=== PATIENT | female | born 1985 | race Caucasian/White ===

== ENCOUNTER → 2018-08-02 17:26 | Observation (INO) ==
--- NOTE | 2018-08-02 17:34 | OB/GYN Progress Note ---
Date of Encounter: 08/02/18 Time of Encounter: 17:10 - Assessment and Plan (1) 31 weeks gestation of Status: Acute Reactive NST Discussed POC for Cholestasis with delivery by 37 weeks Started Ursodial 300mg po BID, first dose given prior to discharge and Rx given NSTs 2x weekly Discussed kick counts Weekly bile acids to monitor trends Follow up on for bile acid, NST, and PN with Dr Loyola POC per consult with Dr Goodman (2) Cholestasis during in third trimester Status: Acute (3) NST (non-stress test) reactive Status: Acute Subjective - Subjective Principal diagnosis: Cholestasis of Interval history: Ms Desir is a at 31 weeks 5 days that presents to triage to discuss her bile acids results and plan of care as she could not come to the office today. She states positive movement. She denies headaches, vision changes, epigastric pain, leaking of fluid, vaginal discharge, and cramping/contractions. She states her itching has increased severely and the topicals and vistaril are barely helping. She is seen by Dr Loyola for her care. Antepartum ROS: movement normal, other (Profuse itching) Objective - Exam FHR: category 1 FHR comments: Baseline 135 with 15 x 15 accels and no decels. No contractions per monitor and palpation Auscultation: bilateral: normal Abdomen: Present: normal appearance, soft, gravid. Absent: tenderness Uterus: Present: normal. Absent: firm
== END | disposition home or self-care (01) ==
LOC: 1NENULAB
PROVIDERS: ADMIT Advanced Practice Midwife; ATTEND Advanced Practice Midwife

== ENCOUNTER 2018-08-30 09:23 | Inpatient (IN) ==
[2018-08-30] MEDS ORDERED: Metoclopramide 10 MG/2 ML VIAL IVP PRN ×2 (09:51→14:52)
[2018-08-30] MEDS ORDERED: Famotidine 20 MG/2 ML VIAL IVP PRN (09:51)
[2018-08-30] MEDS ORDERED: Ringers Solution, Lactated 1,000 ML ONE ×4 (10:01→11:47)
[2018-08-30 10:20] LABS: Basophils % 0.2 %; Eosinophils % 0.2 %; Hematocrit 35.5 % (35.3-44.9); Hemoglobin 12.1 g/dL (11.5-15.4); Immature Granulocytes % 1.8 % (0-4); Lymphocytes # 2.5 K/mcL (0.6-4.6); Lymphocytes % 15.4 %; Mean Corpuscular HGB Conc 34.1 g/dL (31.6-35.5); Mean Corpuscular Hemoglobin 32.5 pg (28.0-33.3); Mean Corpuscular Volume 95.4 fL (83.0-100.0); Mean Platelet Volume 11.1 fL (9.4-12.4); Monocytes # 1.1 K/mcL (0.0-1.3); Monocytes % 6.8 %; Neutrophils # 12.4 K/mcL (1.6-8.9); Nucleated Red Blood Cells 0.4 /100 WBC (0); Platelet Count 304 K/mcL (140-400); Red Blood Count 3.72 M/mcL (3.82-4.97); Red Cell Distribution Width 13.7 % (11.5-14.5); Segmented Neutrophils % 75.6 %; White Blood Count 16.4 K/mcL (4.3-11.1)
[2018-08-30] MEDS ORDERED: CeFAZolin Premix DUPLEX 2,000 MG/50 ML BAG IVPB ONE (10:33)
--- NOTE | 2018-08-30 10:44 | Anesthesia Evaluation PreOp ---
Date of Encounter: 08/30/18 Time of Encounter: 10:35 - Past History Planned Operation: repeat x1 (classical) Cardiac History: Denies any Significant Hx Pulmonary History: Smoker Other Medical History: Hepatic (HEP C+,), Other (previous IVDA, clean for 6yrs.) Anesthesia History: No Prior Anesthetic Complications, Past Anesthesia Alcohol Use: occasionally Drug use: marijuana Medications and Allergies 19 Tablet 1 tab PO DAILY 08/02/18 [History] Prilosec PO DAILY 08/02/18 [History] Ursodiol [Actigall] 300 mg PO BID #60 capsule 08/02/18 [Rx] Vistaril 50 mg PO DAILY 08/02/18 [History] Allergy/AdvReac Type Severity Reaction Status Date / Time clindamycin Allergy Redness of Verified 08/02/18 17:03 Skin Metaxalone [From Skelaxin] Allergy Hives Verified 08/30/18 09:40 tramadol [From Ultram] Allergy unsure Verified 08/02/18 17:04 Anesthesia Results - Labs 08/30/18 10:00 Anesthesia Exam - HEENT Pupil (Motor): Pupils equal Mallampati: II Teeth: Normal Oral Opening: Greater than 3 - AUTOMATIC SCREWMAKER LOC: Oriented AUTOMATIC SCREWMAKER Motor: Normal RUE, Normal LUE, Normal RLE, Normal LLE, Normal Face AUTOMATIC SCREWMAKER Sensory: Normal: RUE, LUE, RLE, LLE, Face - Cardiac Rhythm: Regular Murmur: None - Pulmonary Breath Sounds: bilateral Clear Respiratory Effort: Symmetrical Anesthesia Assess/Plan ASA Score: 3 Level of consciousness: Cooperative, Oriented Anesthetic Plan: General, Spinal, Epidural Monitoring Plan: Standard Monitors Recovery Plan: PACU
--- NOTE | 2018-08-30 10:46 | OB/GYN History & Physical ---
Date of Encounter: 08/30/18 Time of Encounter: 10:34 Assessment and Plan (1) 35 to 36 weeks gestation of Current visit: Yes Status: Acute (2) History of classical section Current visit: Yes Status: Acute (3) labor in third trimester Current visit: Yes Status: Acute Plan for repeat . Pt consented. Anes notified. She has been admitted and is NPO w/ IVF. T&S w/ CBC pending. CEFM/toco. Preop abx ordered. Preeclampsia labs ordered due to intermittent mild range BPs. Qualifiers: labor delivery status: without delivery Qualified Code(s): O60.03 - labor without delivery, third trimester (4) Cholestasis during in third trimester Current visit: No Status: Acute History of Present Illness Chief complaint: ctxs and vb HPI: Ms. Desir is a 32 year old female at 35 5/7 wks EDC determined by 2nd tri US at 15 5/7 wks who presents in labor w/ a history of a classical section for a partial molar at 24 weeks. Her daughter survive d and is 10yo w/ MRDD and CP. She has a vertical abdominal skin incision but would prefer a Phannenstiel this time. She reports reg painful ctxs since 7AM. She was last checked in the office 08/26 and she was FT now she is 3cm and very uncomfortable. She has had vb w/ the contractions (like a period) no LOF. She is having a boy. She was planning for a TL but has changed her mind. She is also taking Ursodiol and Vistaril for generalized pruritis 2/2 cholestasis of . She has elevated bile acids. She has hx of Hep C and has never been treated. 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 Her last PO was at 6:50AM. She is Rh neg. Past Med Surg Social Fam HX - Past Medical History Medical history: no medical history Psychiatric history: no psych history - Past Surgical History Additional surgical history: , laparoscopic gall bladder, MRSA in c- section (7 partial re-opens_ - Social History Smoking Status: Current every day smoker Smokeless Tobacco Status: No Alcohol use: occasionally Drug use: marijuana - Family History Mother Adopted: No Family Member Ethnicity: Non- Living Status: Hx Family Cardiac Disorders: Yes (hypertension, hyperlipidemia) Hx Family Respiratory Disorders: Yes (COPD, asthma) Hx Family Cancer: Yes (COLON cancer) Hx Family GI Disorders: Yes (IBS w/constipation) Hx Family Endocrine Disorder: No Hx Family Neuromuscular Disorders: No Hx Family Neurologic Disorders: No Hx Family HEENT Disorders: No Hx Family Autoimmune Disorders: No Obstetrical History - Pregnancies : 3 Para: 2 Term: 0 : 2 Ab's: 0 Livin - History/Complications History/Complications: G1 PTD/ at 35 wks G2 Classical section at 24 wks for partial molar resulting in heavy bleeding and blood transfusion, post op w/ MRSA wound infection Medications and Allergies 19 Tablet 1 tab PO DAILY 08/02/18 [History] Prilosec PO DAILY 08/02/18 [History] Ursodiol [Actigall] 300 mg PO BID #60 capsule 08/02/18 [Rx] Vistaril 50 mg PO DAILY 08/02/18 [History] Allergy/AdvReac Type Severity Reaction Status Date / Time clindamycin Allergy Redness of Verified 08/02/18 17:03 Skin Metaxalone [From Skelaxin] Allergy Hives Verified 08/30/18 09:40 tramadol [From Ultram] Allergy unsure Verified 08/02/18 17:04 Review of System OB ROS unobtainable: other (denies KIDD, SOB, RUQ pain, or blurry vision) Exam - Constitutional Constitutional: well developed, well nourished - Lungs Respiratory exam: CTAB - Cardiovascular Cardiovascular exam: RRR - Abdomen Abdomen: Present: gravid, non tender. Absent: guarding noted - Extremities Extremities exam: normal inspection Deep Tendon Reflex Grade: 2+ Normal (low vertical midline incision, no calf tenderness, bloody show noted) - Comments Comments: FHTs 130/mod variability/+A,-D, toco: q2-5 min Results Result Diagrams: 08/30/18 10:00 Abnormal lab results WBC 16.4 K/mcL (4.3-11.1) H 08/30/18 10:00 RBC 3.72 M/mcL (3.82-4.97) L 08/30/18 10:00 12.4 K/mcL (1.6-8.9) H 08/30/18 10:00 Nucleated RBCs/100 WBC 0.4 /100 WBC (0) H 08/30/18 10:00 All other labs normal. - VTE Reasons for not Prescribing Prophylaxis: Treatment not Indicated - Low risk for VTE
[2018-08-30] MEDS ORDERED: *HR* Morphine Sulfate/PF 10 MG/10 ML AMPUL ONE (10:53)
[2018-08-30] MEDS ORDERED: *HR* FentaNYL (PF) 100 MCG/2 ML VIAL ONE (10:53)
[2018-08-30] MEDS ORDERED: EPHEDrine 50 MG/ML VIAL ONE ×2 (10:53→10:57)
[2018-08-30] MEDS ORDERED: Dexamethasone 4 MG/ML VIAL ONE (10:54)
[2018-08-30] MEDS ORDERED: *HR* Oxytocin 10 UNIT/ML VIAL IM ONE (10:54)
[2018-08-30] MEDS ORDERED: *HR* Midazolam HCl 2 MG/2 ML VIAL ONE (11:24)
[2018-08-30 11:31] LABS: Aspartate Amino Transferase 25 Units/L (13-39); BUN/Creatinine Ratio 23 (6-26); Blood Urea Nitrogen 14 mg/dL (6-20); eGFR For African Americans > 60 (> 60); eGFR For Non-African Americans > 60 (> 60)
[2018-08-30] MEDS ORDERED: Ketorolac 30 MG/ML VIAL ONE (11:51)
[2018-08-30 12:10] LABS: Amphetamine Screen,Urine Negative ng/mL (Cutoff=1000); Barbiturate Screen,Urine Negative ng/mL (Cutoff=200); Benzodiazepines Screen,Urine Negative ng/mL (Cutoff=200); Cannabinoid Screen,Urine Positive ng/mL (Cutoff = 50); Cocaine Screen,Urine Negative ng/mL (Cutoff= 300); Creatinine,Urine < 1 mg/dL; Opiate Screen,Urine Negative ng/mL (Cutoff=300); Phencyclidine Screen,Urine Negative ng/mL (Cutoff=25)
[2018-08-30] MEDS ORDERED: *HR* Phenylephrine 10 MG/ML VIAL ONE (12:23)
[2018-08-30] MEDS ORDERED: *HR* Labetalol 20 MG/4 ML SYRINGE IVP ONE (13:00)
[2018-08-30] MEDS ORDERED: Oxytocin 20 units/ LR 1000 mL 20 UNIT/1,000 ML BAG IVC ONE (14:09)
--- NOTE | 2018-08-30 14:27 | Anesthesia Evaluation Post Op ---
Date of Encounter: 08/30/18 Time of Encounter: 13:56 - Vital Signs Vital Signs: vss - Lungs Lungs: Clear Ascult./Percussion - Airway Airway: Non-obstructed - Mental Status Mental Status: Alert & Oriented, Answers Appropriately - Pain Pain Scale used: Gerri (Faces) - Nausea Vomiting Nausea Vomiting: Not Present - Hydration Hydration: Ice chips - Discharge PostOp Status: Transfer Patient to floor
[2018-08-30] MEDS ORDERED: Sennosides 8.6 MG TABLET PO PRN (14:52)
[2018-08-30] MEDS ORDERED: Simethicone 80 MG TAB.CHEW PO PRN (14:52)
[2018-08-30] MEDS ORDERED: Rho Immune Globulin 1,500 UNIT SYRINGE IM ONE (14:52)
[2018-08-30] MEDS ORDERED: Oxytocin 20 units/ LR 1000 mL 20 UNIT/1,000 ML BAG IVC SCH ×2 (14:52)
[2018-08-30] MEDS ORDERED: Ondansetron 4 MG/2 ML VIAL IVP PRN (14:52)
--- NOTE | 2018-08-30 15:15 | OB/GYN Procedure Note ---
Section - Date of procedure: 08/30/18 Preop diagnosis: other (history of classical section, in labor at 35 weeks) Post-op diagnosis: same Procedure: repeat low transverse Surgeon: Venessa Zhang Blood Loss: 500 Was there an hospital aides and assistants teacher present: Yes Dress Marker: Garth Caraballo (to nava case) Fruit Pitter: Jimmie Pereira Anesthesia Type: Spinal section complications: none Disposition: PACU Specimens: Placenta (on hold) - (s) Infant A Delivery Date: 08/30/18 Delivery Time: 11:43 Presentation: vertex Gender: Male Viability: Viable Pounds: 6 Ounces: 2 Gram Weight: 2.77 kg at 1 minute: 8 at 5 minutes: 9 Shoulder Dystocia: not encountered Specimens collected: cord blood Placenta: spontaneous (with fundal massage and gentle traction on the cord) - Narrative Narrative: The patient was taken to the operating room where she was prepped for surgery by anesthesia who performed a spinal block. She had a Reyes catheter placed. The vagina was prepped with betadine. The patient was grounded. She had sequential compression stockings applied and activated. The patient was prepped and draped in the normal sterile fashion after confirming normal heart tones. She received preoperative Ancef 2g. A timeout was completed. Testing demonstrated adequate anesthesia. A Pfannenstiel skin incision was made using the previous incision scar. The incision was carried down to the fascia. A fascial incision was created. The incision was extended laterally with the Reddy scissors. The superior aspect of the incision was grasped with Adryan clamps and elevated. The underlying rectus muscles were dissected off bluntly. Scar tissue was encountered in the midline and this was taken down with the scissors. The inferior aspect of the incision was grasped and the rectus muscles were dissected off bluntly. The rectus muscles were divided in the midline. The peritoneum was entered bluntly. The peritoneal incision was extended superiorly and inferiorly bluntly. A bladder blade was placed. A bladder flap was created. The uterine incision was made in the lower uterine segment in a transverse fashion. The uterus was entered bluntly. The uterine incision was extended laterally bluntly. The head of the infant was lifted out of the pelvis and delivered through the incision with gentle fundal pressure. The body of the infant was delivered with gentle pressure applied to the fundus and gentle traction on the head and under the arms. The mouth and nose were bulb suctioned. The umbilical cord was clamped and cut. After that, the was handed off to the nurse. The placenta was delivered with gentle traction on the cord and fundal massage. It appeared to be intact. The uterus was cleared of membrane with a dry lap sponge. The uterus was exteriorized. The uterine incision was closed with 0 Polysorb suture in a running locked fashion. A second layer, using the same type of suture, was used for imbrication. The uterine incision was found to be hemostatic. The fallopian tubes and the ovaries were inspected. The gutters were cleared of all clot and debris. The uterus was returned to the abdomen. The fascia was closed in a running fashion using 0 Vycril suture. The skin was closed in a subcuticular manner using 4-0 Monocryl. Steri-Strips were placed along the incision. The incision was dressed with a pressure dressing. Sponge, needle, and instrument counts were correct times two.
[2018-08-30] MEDS: Ibuprofen 600 MG TABLET PO PRN ×2 (16:06→22:50)
[2018-08-30] MEDS ORDERED: 0.9 % Sodium Chloride 500 ML IVC ONE (18:30)
[2018-08-30] MEDS: hydrOXYzine pamoate 25 MG CAPSULE PO PRN (22:51)
[2018-08-31] MEDS: Ibuprofen 600 MG TABLET PO PRN ×3 (05:46→18:36)
[2018-08-31 08:19] LABS: Basophils % 0.2 %; Eosinophils % 0.2 %; Hematocrit 31.8 % (35.3-44.9); Hemoglobin 10.7 g/dL (11.5-15.4); Immature Granulocytes % 0.7 % (0-4); Lymphocytes # 3.8 K/mcL (0.6-4.6); Lymphocytes % 21.8 %; Mean Corpuscular HGB Conc 33.6 g/dL (31.6-35.5); Mean Corpuscular Volume 98.1 fL (83.0-100.0); Mean Platelet Volume 11.3 fL (9.4-12.4); Monocytes # 1.2 K/mcL (0.0-1.3); Monocytes % 6.9 %; Neutrophils # 12.3 K/mcL (1.6-8.9); Nucleated Red Blood Cells 0.1 /100 WBC (0); Platelet Count 294 K/mcL (140-400); Red Blood Count 3.24 M/mcL (3.82-4.97); Segmented Neutrophils % 70.2 %; White Blood Count 17.5 K/mcL (4.3-11.1)
[2018-08-31] MEDS: Prenatal Vit/FA 1 EACH TABLET PO SCH (09:01)
[2018-08-31] MEDS: *HR* OxyCODONE/APAP 5/325 TABLET PO PRN ×3 (10:16→23:05)
--- NOTE | 2018-08-31 10:48 | OB/GYN Progress Note ---
Date of Encounter: 08/31/18 Time of Encounter: 10:46 - Assessment and Plan (1) delivery delivered Current Visit: Yes Status: Acute Maintain dressing with abdominal binder for support. Advance diet as tolerated. Ambulate as tolerated. Supportive bra for bottle feeding. Continue to encourage ambulation and await flatus. Anticipate discharge home POD2-3. (2) Intrahepatic cholestasis of , delivered, current hospitalization Current Visit: Yes Status: Acute Monitor pruritis. Medication as needed for comfort. Start Ursodiol 300 mg po BID Subjective - Subjective Interval history: 32 y/o female postop day 1 reports itching all over her body that starts with her hands. She is tearful and reports that the itching is making her miserable and interfering with her ability to sleep and sanderson with her baby. Also c/o burning along incision area when she coughs especially on the left side but also present on right side. She denies any other complaints. She is tolerating a regular diet without nausea and is not yet passing flatus. Patient reports: appetite normal, voiding normally, pain well controlled, ambulating normally : in NICU (35 week, took first bottle today), bottle feeding Objective - Vital Signs Latest vital signs: Vital Signs Temp Pulse Resp BP Pulse Ox 08/31/18 07:53 97.8 F 57 16 123/83 08/31/18 05:40 97.3 F L 70 16 127/84 98 08/30/18 23:30 98.1 F 69 16 119/72 97 08/30/18 19:40 97.9 F 80 16 124/74 98 08/30/18 17:46 97.8 F 64 16 118/66 96 08/30/18 16:55 97.7 F 79 14 122/75 97 08/30/18 15:45 97.4 F L 61 14 111/56 97 08/30/18 15:15 97.4 F L 65 14 119/64 98 08/30/18 14:45 97.4 F L 68 14 107/60 97 Intake and Output 08/30/18 08/31/18 08/31/18 23:59 07:59 15:59 Intake Total 600 / 960 360 / 960 Output Total 380 / 680 1200 / 2200 1000 / 2200 Balance -380 / -480 -600 / -1240 -640 / -1240 Intake: Oral 600 / 960 360 / 960 Output: Urine 1000 / 1000 Catheter 380 / 680 1200 / 1200 Other: Meal Breakfast Percent of Meal Consumed 100% Weight 62.9 kg Patient Weight 08/31/18 23:59 Weight 62.9 kg - Exam Lungs: bilateral: normal Chest: Normal S1, Normal S2 Extremities: Present: edema (1+ non pitting) Abdomen: Present: normal appearance, soft Incision: Present: dry, dressed (dried blood on dressing) Uterus: Present: firm Fundal Height: 1 (U/-1) - Labs Labs: Laboratory Results - last 24 hr 08/30/18 08/30/18 08/30/18 10:00 10:57 12:48 WBC RBC Hgb Hct MCV MCH MCHC RDW Plt Count MPV Immature Gran % Seg Neutrophils % Lymphocytes % Monocytes % Eosinophils % Basophils % Neutrophils # Lymphocytes # Monocytes # Eosinophils # Basophils # Nucleated RBCs/100 WBC BUN 14 Creatinine 0.60 Est GFR ( Amer) > 60 Est GFR (Non-Af Amer) > 60 BUN/Creatinine Ratio 23 AST 25 Urine Creatinine < 1 Protein/Creatinin Ratio TNP Urine Total Protein 14 Urine Opiates Screen Negative Ur Buprenorphine Scrn Negative Ur Barbiturates Screen Negative Ur Phencyclidine Scrn Negative Ur Amphetamines Screen Negative U Benzodiazepines Scrn Negative Urine Cocaine Screen Negative U Marijuana (THC) Screen Positive H Ur Drug Screen Interp See Below Baby's Blood Type A RH NEGATIVE Mother's Blood Type A RH NEGATIVE Rhogam Indicated NO 08/31/18 07:57 WBC 17.5 H RBC 3.24 L Hgb 10.7 L Hct 31.8 L MCV 98.1 MCH 33.0 MCHC 33.6 RDW 14.0 Plt Count 294 MPV 11.3 Immature Gran % 0.7 Seg Neutrophils % 70.2 Lymphocytes % 21.8 Monocytes % 6.9 Eosinophils % 0.2 Basophils % 0.2 Neutrophils # 12.3 H Lymphocytes # 3.8 Monocytes # 1.2 Eosinophils # 0.0 Basophils # 0.0 Nucleated RBCs/100 WBC 0.1 H BUN Creatinine Est GFR ( Amer) Est GFR (Non-Af Amer) BUN/Creatinine Ratio AST Urine Creatinine Protein/Creatinin Ratio Urine Total Protein Urine Opiates Screen Ur Buprenorphine Scrn Ur Barbiturates Screen Ur Phencyclidine Scrn Ur Amphetamines Screen U Benzodiazepines Scrn Urine Cocaine Screen U Marijuana (THC) Screen Ur Drug Screen Interp Baby's Blood Type Mother's Blood Type Rhogam Indicated
[2018-08-31] MEDS: hydrOXYzine pamoate 25 MG CAPSULE PO PRN (23:05)
[2018-09-01] MEDS: Prenatal Vit/FA 1 EACH TABLET PO SCH (08:02)
[2018-09-01] MEDS: *HR* OxyCODONE/APAP 5/325 TABLET PO PRN (08:03)
[2018-09-01] MEDS: Ibuprofen 600 MG TABLET PO PRN (08:04)
[2018-09-01 08:29] VITALS: BP 128/89
--- NOTE | 2018-09-01 10:37 | Discharge Summary ---
Date of Encounter: 09/01/18 Time of Encounter: 10:33 - Discharge Diagnosis (1) Breast feeding status of mother Priority: Secondary Status: Acute Comments: support prn (2) delivery delivered Priority: Primary Status: Acute Comments: Continue routine care discharge home today follow up with Dr. Loyola in 2 weeks for incision check - Discharge Medications Prescriptions: New Breast Pump [BREAST PUMP] 1 each .ROUTE AD #1 each Ibuprofen [Motrin] 600 mg PO Q6HR PRN #60 tablet PRN Reason: Cramping OxyCODONE/APAP 5/325 [Percocet 5/325 MG] 1 each PO Q6HR PRN 5 Days #20 tablet PRN Reason: Moderate pain 4-6 Continued 19 Tablet 1 tab PO DAILY Discontinued Ursodiol [Actigall] 300 mg PO BID #60 capsule Vistaril 50 mg PO DAILY Prilosec PO DAILY Home Medications: 19 Tablet 1 tab PO DAILY 08/02/18 [History] Breast Pump [BREAST PUMP] 1 each .ROUTE AD #1 each 09/01/18 [Rx] Ibuprofen [Motrin] 600 mg PO Q6HR PRN #60 tablet 09/01/18 [Rx] OxyCODONE/APAP 5/325 [Percocet 5/325 MG] 1 each PO Q6HR PRN 5 Days #20 tablet 09/01/18 [Rx] Allergies/Adverse Reactions: Allergy/AdvReac Type Severity Reaction Status Date / Time clindamycin Allergy Redness of Verified 08/02/18 17:03 Skin Metaxalone [From Skelaxin] Allergy Hives Verified 08/30/18 09:40 tramadol [From Ultram] Allergy unsure Verified 08/02/18 17:04 Data Procedures and tests throughout hospitalization: Laboratory Tests 08/30/18 08/30/18 08/30/18 10:00 10:00 10:57 WBC 16.4 H RBC 3.72 L Hgb 12.1 Hct 35.5 MCV 95.4 MCH 32.5 MCHC 34.1 RDW 13.7 Plt Count 304 MPV 11.1 Immature Gran % 1.8 Seg Neutrophils % 75.6 Lymphocytes % 15.4 Monocytes % 6.8 Eosinophils % 0.2 Basophils % 0.2 Neutrophils # 12.4 H Lymphocytes # 2.5 Monocytes # 1.1 Eosinophils # 0.0 Basophils # 0.0 Nucleated RBCs/100 WBC 0.4 H BUN 14 Creatinine 0.60 Est GFR ( Amer) > 60 Est GFR (Non-Af Amer) > 60 BUN/Creatinine Ratio 23 AST 25 Urine Creatinine < 1 Protein/Creatinin Ratio TNP Urine Total Protein 14 Urine Opiates Screen Negative Ur Buprenorphine Scrn Negative Ur Barbiturates Screen Negative Ur Phencyclidine Scrn Negative Ur Amphetamines Screen Negative U Benzodiazepines Scrn Negative Urine Cocaine Screen Negative U Marijuana (THC) Screen Positive H Ur Drug Screen Interp See Below Baby's Blood Type Mother's Blood Type Rhogam Indicated 08/30/18 08/31/18 12:48 07:57 WBC 17.5 H RBC 3.24 L Hgb 10.7 L Hct 31.8 L MCV 98.1 MCH 33.0 MCHC 33.6 RDW 14.0 Plt Count 294 MPV 11.3 Immature Gran % 0.7 Seg Neutrophils % 70.2 Lymphocytes % 21.8 Monocytes % 6.9 Eosinophils % 0.2 Basophils % 0.2 Neutrophils # 12.3 H Lymphocytes # 3.8 Monocytes # 1.2 Eosinophils # 0.0 Basophils # 0.0 Nucleated RBCs/100 WBC 0.1 H BUN Creatinine Est GFR ( Amer) Est GFR (Non-Af Amer) BUN/Creatinine Ratio AST Urine Creatinine Protein/Creatinin Ratio Urine Total Protein Urine Opiates Screen Ur Buprenorphine Scrn Ur Barbiturates Screen Ur Phencyclidine Scrn Ur Amphetamines Screen U Benzodiazepines Scrn Urine Cocaine Screen U Marijuana (THC) Screen Ur Drug Screen Interp Baby's Blood Type A RH NEGATIVE Mother's Blood Type A RH NEGATIVE Rhogam Indicated NO Date of admission: 08/30/18 09:23 Primary care physician: Jenni Martinez Consults: 08/30/18 14:52 Consult to Post Adoption Coordinator (W&C) [CONS] Routine Reason For Exam: Reason for SW Consult: pos UDS-marijuana, hx of IVDA, sober x6yrs Discharging clinician: Chirstie Rudolph Anticipated date of discharge: 09/01/18 - Patient Status Disposition: Home, Self-Care Condition: Good Functional capacity at discharge: independent ambulation - Discharge Instructions Follow Up With: Jenni Martinez CNP [Primary Care Provider] - Yogesh Loyola MD [Partnered Physician] - - Diet and Activity Activity: increase activity as tolerated Diet: regular diet Hospital Course Procedures: OARRs report reviewed per ROHINI Syed prior to discharge Reason for admission: active labor Delivery: section (repeat due to history of classical c/s) Laceration: none Other procedures: none complications: none Discharge diagnosis: delivery baby: male (breast feeding) Time Attestation: Total time spent providing and/or coordinating discharge services: Time Spent: Less than 30 minutes - VTE Reasons for not Prescribing Prophylaxis: Treatment not Indicated - Low risk for VTE Documentation of Mechanical Device: Intermittent pneumatic compression device Exam - Constitutional Vitals: Temp Pulse Resp BP Pulse Ox 98.3 F 81 16 128/89 97 09/01/18 08:27 09/01/18 08:27 09/01/18 08:27 09/01/18 08:27 09/01/18 08:27 General appearance IM: A&O X 3, pleasant, answers questions appropriately - Respiratory Respiratory exam: Present: wheezes (expiratory) - Cardiovascular Cardiovascular exam IM: Present: RRR, +S1, +S2 - GI/Abdominal GI/Abdominal exam IM: normal bowel sounds Incision: normal, dry, intact, other (steri strips and binder) - Uterine Tone: Firm Uterus Position: 1 Finger Below Umbilicus, Midline - Extremities Exam Extremities exam IM: Present: full ROM, normal inspection
== END 2018-09-01 11:15 | disposition home or self-care (01) | DRG 540 ==
LOC: 1NENULAB → OBSVTOIN 09:23 → 1NENUOBS 12:39
PROVIDERS: ADMIT Registered Nurse; ATTEND Registered Nurse